=== PATIENT | female | born 2000 | race Caucasian/White ===

== ENCOUNTER 2018-10-18 15:00 | Emergency (ER) | payer OTHER ==
[2018-10-18 15:08] VITALS: BP 109/61; PULSE 68; TEMP 98; BMI 22.4
[2018-10-18 15:53] LABS: HCG,QUALITATIVE URINE Negative
[2018-10-18 16:00] LABS: EPI CELLS 4.4 /HPF (0-5); PH,URINE 6.5 (5.0-8.0); URINE APPEARANCE CLOUDY; URINE BACTERIA 223.056 /hpf (NEGATIVE); URINE BILIRUBIN NEGATIVE (NEGATIVE); URINE COLOR YELLOW; URINE GLUCOSE (UA) NEGATIVE (NEGATIVE); URINE KETONE TRACE (NEGATIVE); URINE LEUK ESTERASE 1+ (NEGATIVE); URINE NITRITE NEGATIVE (NEGATIVE); URINE PROTEIN NEGATIVE (NEGATIVE); URINE RBC 6 /hpf (0-4); URINE WBC 35 /hpf (0-5)
[2018-10-18] MEDS ORDERED: AZITHROMYCIN 250 MG TABLET PO ONE (16:34)
[2018-10-18] MEDS ORDERED: AZITHROMYCIN 250 MG TABLET ONE (16:39)
[2018-10-18] MEDS ORDERED: LIDOCAINE HCL 1%, 10 MG/ML (20ML VIAL) ONE (16:41)
[2018-10-18 16:43] LABS: HYALINE CASTS NONE SEEN /hpf (0-8)
--- NOTE | 2018-10-18 16:43 | PDOC ---
History of Present Illness - General Chief Complaint: Urinary Problem Stated Complaint: LOWER BACK PAIN Time Seen by Provider: 10/18/18 16:08 - History of Present Illness Initial Comments: 10/18/18 16:34 17-year-old female presents for evaluation and concern of pelvic pressure after unprotected sex about a week ago. She would like to be treated for GC and chlamydia she is diffuse HIV testing Past History - Past Medical History Allergies/Adverse Reactions: Allergies Allergy/AdvReac Type Severity Reaction Status Date / Time No Known Allergies Allergy Verified 10/18/18 15:03 Home Medications: Ambulatory Orders Levofloxacin [Levaquin] 750 mg PO DAILY #11 tablet 10/02/17 Nitrofurantoin Monohyd/M-Cryst [Macrobid -] 100 mg PO BID #14 capsule 10/18/18 CVA: No COPD: No DVT: No Dementia: No - Immunization History Immunization Up to Date: No - Suicide/Smoking/Psychosocial Hx Smoking History: Never smoked Have you smoked in the past 12 months: No Hx Alcohol Use: No Drug/Substance Use Hx: No Substance Use Type: None Review of Systems - Review of Systems : Yes: See HPI *Physical Exam - Vital Signs Last Vital Signs Temp Pulse Resp BP Pulse Ox 98.0 F 68 18 109/61 100 10/18/18 15:03 10/18/18 15:03 10/18/18 15:03 10/18/18 15:03 10/18/18 15:03 - Physical Exam Comments: 10/18/18 16:35 HEAD: NC/AT EYES: Conjuntiva clear Pelvic exam deferred to [employer] patient request MS: Full ROM in all joints without edema NEUROLOGIC: No gross sensory or motor deficits, NVID SKIN: Normal color and temperature no lesions or rashes ED Treatment Course - ADDITIONAL ORDERS Additional order review: Laboratory Results 10/18/18 15:30 Urine HCG, Qual Negative Medical Decision Making - Medical Decision Making 10/18/18 16:35 We'll treat for GC and chlamydia and have patient follow-up clinic. UA pending if UTI we'll treat for that as well. 10/18/18 16:36 HIV test refused *DC/Admit/Observation/Transfer Diagnosis at time of Disposition: UTI (urinary tract infection), Possible exposure to STD - Discharge Dispostion Disposition: HOME Condition at time of disposition: Stable Decision to Admit order: No - Prescriptions Prescriptions: Nitrofurantoin Monohyd/M-Cryst [Macrobid -] 100 mg PO BID #14 capsule - Referrals Referrals: [facility] [Primary Care Provider] - - Patient Instructions Printed Discharge Instructions: How to Detect and Treat STDs, Facts About Sexually Transmitted Infections, Chlamydia: The Silent STD, DI for Urinary Tract Infection (UTI), Urinary Tract Infection Additional Instructions: Return to the emergency room for worsening symptoms. You were treated for gonorrhea and chlamydia today. Your urine does show UTI. We will treat you for urinary tract infection please take the antibiotics as directed and finish the entire course follow-up with your primary care infant babysitter physician one to 2 days for further evaluation and treatment options. - Post Discharge Activity
== END 2018-10-18 16:56 | disposition home or self-care (01) ==
LOC: JERFT 15:00
DX: N39.0 Urinary tract infection, site not specified (principal); Z20.2 Contact with and (suspected) exposure to infections with a predominantly sexual mode of transmission
CPT/HCPCS: 36415; 81003; 84703; 87086; 87491; 87591; 96372; 99281-25

== ENCOUNTER 2019-04-19 10:11 | Emergency (ER) | payer OTHER ==
[2019-04-19 10:16] VITALS: BMI 20.3
[2019-04-19 10:44] VITALS: BP 112/51; PULSE 65; TEMP 98.6
--- NOTE | 2019-04-19 10:55 | PDOC ---
History of Present Illness - General Chief Complaint: Chest Pain Stated Complaint: MID BACK PAIN/ CHEST PAIN Time Seen by Provider: 04/19/19 10:51 History Source: Patient - History of Present Illness Presenting Symptoms: Other Past History - Past Medical History Allergies/Adverse Reactions: Allergies Allergy/AdvReac Type Severity Reaction Status Date / Time No Known Allergies Allergy Verified 04/19/19 10:16 Home Medications: Ambulatory Orders Levofloxacin [Levaquin] 750 mg PO DAILY #11 tablet 10/02/17 Nitrofurantoin Monohyd/M-Cryst [Macrobid -] 100 mg PO BID #14 capsule 10/18/18 Ibuprofen [Motrin -] 600 mg PO QID #28 tablet 04/19/19 Sulfamethoxazole/Trimethoprim [Bactrim Ds -] 1 tab PO BID #13 tablet 04/19/19 Cardiac Disorders: Yes (MUR MUR) CVA: No COPD: No DVT: No Dementia: No - Immunization History Immunization Up to Date: No - Psycho Social/Smoking Cessation Hx Smoking History: Never smoked Have you smoked in the past 12 months: No Hx Alcohol Use: No Drug/Substance Use Hx: No Substance Use Type: None Review of Systems - Review of Systems Constitutional: No: Chills, Fever Respiratory: No: Cough, Shortness of Breath Cardiac (ROS): Yes: Chest Pain. No: Lightheadedness, Palpitations, Syncope ABD/GI: No: Nausea, Vomiting, Abdominal cramping : Yes: Flank Pain. No: Burning, Dysuria, Discharge, Frequency, Hematuria *Physical Exam - Vital Signs Last Vital Signs Temp Pulse Resp BP Pulse Ox 98.6 F 65 15 112/51 L 100 04/19/19 10:43 04/19/19 10:43 04/19/19 10:43 04/19/19 10:43 04/19/19 10:43 - Physical Exam General Appearance: Yes: Appropriately Dressed, Mild Distress HEENT: positive: Normal Voice Neck: positive: Supple Respiratory/Chest: positive: Lungs Clear, Normal Breath Sounds. negative: Respiratory Distress Cardiovascular: positive: Regular Rate, S1, S2 Gastrointestinal/Abdominal: positive: Soft. negative: Tender Musculoskeletal: positive: Vertebral Tenderness (to R mid back, ? CVAT) Extremity: positive: Normal Inspection Integumentary: positive: Dry, Warm Neurologic: positive: Fully Oriented, Alert, Normal Mood/Affect Heart Score/ECG Review - ECG Intrepretation Comment:: 04/19/19 11:59 Twelve-lead EKG was performed and reviewed by me. There is normal sinus rhythm with a normal rate. The axis is normal. The intervals are normal. There are no ST or T wave abnormalities. Impression: Normal twelve-lead EKG ED Treatment Course - LABORATORY CBC & Chemistry Diagram: 04/19/19 11:11 04/19/19 11:11 - ADDITIONAL ORDERS Additional order review: Laboratory Results 04/19/19 04/19/19 04/19/19 11:11 11:11 11:11 Sodium 136 Potassium 3.9 Chloride 103 Carbon Dioxide 25 Anion Gap 8 BUN 7.9 Creatinine 0.8 Est GFR (CKD-EPI)AfAm 123.01 Est GFR (CKD-EPI)NonAf 106.13 Random Glucose 87 Calcium 9.6 Total Bilirubin 1.5 H AST 8 L ALT 15 Alkaline Phosphatase 64 Total Protein 7.6 Albumin 4.4 Urine Color Yellow Urine Appearance Clear Urine pH 6.0 Ur Specific Carpenter 1.015 Urine Protein Negative Urine Glucose (UA) Negative Urine Ketones Negative Urine Blood Negative Urine Nitrite Negative Urine Bilirubin Negative Urine Urobilinogen 0.2 Ur Leukocyte Esterase Trace Urine WBC (Auto) 4 Urine RBC (Auto) 1 Urine Casts (Auto) 1 U Epithel Cells (Auto) 2.4 Urine Bacteria (Auto) 32.2 Urine HCG, Qual Negative 04/19/19 11:11 RBC 4.57 MCV 87.6 MCHC 32.7 RDW 13.8 MPV 9.4 D Neutrophils % 92.2 H Lymphocytes % 4.2 L Monocytes % 3.3 L Eosinophils % 0.1 D Basophils % 0.2 - Medications Given in the ED: ED Medications Discontinued Medications Generic Name Dose Route Start Last Admin Trade Name Freq PRN Reason Stop Dose Admin Ketorolac Tromethamine 30 mg 04/19/19 10:58 04/19/19 11:19 Toradol Injection - IM 04/19/19 10:59 30 mg ONCE ONE Administration Trimethoprim/Sulfamethoxazole 1 each 04/19/19 12:31 04/19/19 12:35 Bactrim Ds - PO 04/19/19 12:32 1 each ONCE ONE Administration Medical Decision Making - Medical Decision Making Medical Decision Makin04/19/19 11:16 am 18 yo F, h/o heart murmur, sepsis 2/2 pyelo in 2018 , here w/ multiple complaints. Pt endorses h/o chronic chest pain x 1 yr, SS, non-radiating, lasts for 1-2 hrs and usually self resolves. For unclear reasons has not been evaluated by her PMD or cards. States she had chest pain last night and that pain lasted till this am so decided to come to ER. States pain better now. No sob, diaphoresis, n/v, palpitations, leg pain/swelling. Pt also c/o ? chronic back pain and states pain worsened 2 days ago, located to R mid back, constant, worse w/ certain movements and feels ? similar to prior pyelo per pt. ?urinary freq but no pain upon urinating, hematuria, n/v/f/c at this time. See exam Flank pain ?MSK vs ? recurrent pyelo given hx Stable and ayan uncomfortable w/? R CVAT -pain control -labs -ua/ucx Chronic CP Dx w/ heart murmur last pr per pt No sig pain now Stable w/ clear chest lungs EKG normal Anticipate dc w/ PMD/cards f/u 12:33pm UA w/ no nit or LE, +4 wbc and 32 zelalem. Wbc 13. On reassessment now, patient appears well, currently talking on her cell phone and reports that pain improved with toradol. No fever here and no nausea or vomiting. Though back pain might be muscular given worsening w/ movement, will start on bactrim ( prior sensitivity reviewed) given history and the fact that pt's UA was unremarkable in 2018, when pt presented w/ sepsis/pyelo, w/ ultimately +ucx. Pt feels well enough to be discharged w/ trial of oral abx and pain control. Strict return precautions given. Pt verbalized understanding Discharge - Discharge Information Problems reviewed: Yes Clinical Impression/Diagnosis: Flank pain Condition: Improved Disposition: HOME - Additional Discharge Information Prescriptions: Ibuprofen [Motrin -] 600 mg PO QID #28 tablet Sulfamethoxazole/Trimethoprim [Bactrim Ds -] 1 tab PO BID #13 tablet - Follow up/Referral - Patient Discharge Instructions Additional Instructions: The cause of your back pain might be muscular but given your history and slightly elevated white count of 13, we will treat prophylactically with antibiotics for possible UTI. Take antibiotics and Motrin as directed and if symptoms persist and/or worsen, return to the ER immediately Regarding your chronic chest pain, please follow up with your PMD - Post Discharge Activity Work/Back to School Note: Back to Work
[2019-04-19] MEDS ORDERED: KETOROLAC TROMETHAMINE 30 MG/1 ML VIAL IM ONE (10:58)
--- NOTE | 2019-04-19 11:04 | EKG ---
Test Reason : Blood Pressure : / mmHG Vent. Rate : 070 BPM Atrial Rate : 070 BPM P-R Int : 156 ms QRS Dur : 088 ms QT Int : 376 ms P-R-T Axes : 011 064 004 degrees QTc Int : 406 ms NORMAL SINUS RHYTHM NORMAL ECG WHEN COMPARED WITH ECG OF 28-SEP-2017 11:46, VENT. RATE HAS DECREASED BY 36 BPM Confirmed by BENJAMIN AGARWAL MD ([id number]) on 04/19/2019 11:03:46 AM Referred By: Confirmed By:BENJAMIN AGARWAL MD
[2019-04-19] MEDS ORDERED: KETOROLAC TROMETHAMINE 30 MG/1 ML VIAL ONE (11:09)
[2019-04-19 11:38] LABS: BASO % 0.2 % (0-2.0); EOS % 0.1 % (0-4.5); HEMOGLOBIN 13.1 GM/dL (10.7-15.3); LYMPH % 4.2 % (8-40); MCH 28.6 pg (25.7-33.7); MCHC 32.7 g/dl (32.0-36.0); MEAN CELL VOLUME 87.6 fl (80-96); MEAN PLT VOLUME 9.4 fl (7.5-11.1); MONO % 3.3 % (3.8-10.2); NEUT % 92.2 % (42.8-82.8); PLATELET COUNT 211 K/MM3 (134-434); RBC 4.57 M/mm3 (3.60-5.2); RDW 13.8 % (11.6-15.6); WHITE BLOOD COUNT 13.9 K/mm3 (4.0-10.0)
[2019-04-19 12:01] LABS: ALBUMIN 4.4 g/dl (3.4-5.0); BILIRUBIN,TOTAL 1.5 mg/dL (0.2-1); BLOOD UREA NITROGEN 7.9 mg/dL (7-18); CALCIUM 9.6 mg/dL (8.5-10.1); CREATININE 0.8 mg/dL (0.55-1.3); POTASSIUM 3.9 mmol/L (3.5-5.1); TOT PROT 7.6 g/dl (6.4-8.2)
[2019-04-19 12:09] LABS: EPI CELLS 2.4 /HPF (0-5/HPF); HYALINE CASTS 1 /lpf (0-8); URINE APPEARANCE CLEAR; URINE BACTERIA 32.2 /hpf (NEGATIVE); URINE BILIRUBIN NEGATIVE (NEGATIVE); URINE COLOR YELLOW; URINE GLUCOSE (UA) NEGATIVE (NEGATIVE); URINE KETONE NEGATIVE (NEGATIVE); URINE LEUK ESTERASE TRACE (NEGATIVE); URINE NITRITE NEGATIVE (NEGATIVE); URINE PROTEIN NEGATIVE (NEGATIVE); URINE RBC 1 /hpf (0-4); URINE UROBILINOGEN 0.2 mg/dL (0.2-1.0); URINE WBC 4 /hpf (0-5)
[2019-04-19] MEDS ORDERED: SULFAMETHOXAZOLE/TRIMETHOPRIM 800MG/160MG D.S. TABLET PO ONE (12:31)
[2019-04-19] MEDS ORDERED: SULFAMETHOXAZOLE/TRIMETHOPRIM 800MG/160MG D.S. TABLET ONE (12:34)
[2019-04-19 13:24] LABS: ANISOCYTOSIS 0; HELMET CELLS 0; HOWELL-JOLLY BODIES 0; MACROCYTOSIS 0; OVALOCYTE 0; PLATELET ESTIMATE NORMAL; ROULEAU 0; SICKELED CELLS 0; TARGET CELLS 0; TEAR DROP CELLS 0; TOXIC GRANULATION 0
== END 2019-04-19 12:41 | disposition home or self-care (01) ==
LOC: JER 10:11
PROC: 3E0233Z Introduction of Anti-inflammatory into Muscle, Percutaneous Approach (ICD-10-PCS; principal; 2019-04-19)
DX: R10.9 Unspecified abdominal pain (principal); R01.1 Cardiac murmur, unspecified
CPT/HCPCS: 36415; 80053; 81003; 84703; 85025; 87086; 93005; 93010; 99283-25

== ENCOUNTER 2019-09-11 21:53 | Emergency (ER) | payer OTHER ==
[2019-09-11 22:01] VITALS: BP 119/95; PULSE 68; TEMP 98; BMI 23.3
--- NOTE | 2019-09-11 22:24 | PDOC ---
*Physical Exam - Vital Signs Last Vital Signs Temp Pulse Resp BP Pulse Ox 98.0 F 68 18 119/95 100 09/11/19 21:59 09/11/19 21:59 09/11/19 21:59 09/11/19 21:59 09/11/19 21:59 ED Treatment Course - LABORATORY CBC & Chemistry Diagram: 09/11/19 23:30 09/11/19 23:30 Medical Decision Making - Medical Decision Making 09/11/19 22:24 Patient seen by the advanced practice provider under my supervision. Ancillary testing reviewed as necessary. I agree with plan as outlined by the advanced practice provider. Discharge - Discharge Information Problems reviewed: Yes Clinical Impression/Diagnosis: Eloped from emergency department Disposition: ELOPED - Follow up/Referral Referrals: Maxx Rea [Primary Care Provider] - - Patient Discharge Instructions - Post Discharge Activity
[2019-09-11] MEDS ORDERED: ACETAMINOPHEN 1000 MG/100 ML VIAL (NON FORMULARY) IVPB ONE (22:55)
[2019-09-11 23:37] LABS: BASO % 0.9 % (0-2.0); EOS % 2.3 % (0-4.5); HEMATOCRIT 36.6 % (32.4-45.2); HEMOGLOBIN 12.5 GM/dL (10.7-15.3); LYMPH % 28.2 % (8-40); MCH 29.4 pg (25.7-33.7); MCHC 34.1 g/dl (32.0-36.0); MEAN PLT VOLUME 9.8 fl (7.5-11.1); MONO % 6.3 % (3.8-10.2); NEUT % 62.3 % (42.8-82.8); PLATELET COUNT 258 K/MM3 (134-434); RBC 4.25 M/mm3 (3.60-5.2); RDW 14.3 % (11.6-15.6); WHITE BLOOD COUNT 4.2 K/mm3 (4.0-10.0)
[2019-09-11] MEDS ORDERED: ACETAMINOPHEN INJECTION 100 ML IVPB ONE (23:47)
[2019-09-12 00:20] LABS: ALBUMIN 4.4 g/dl (3.4-5.0); BILIRUBIN,TOTAL 0.8 mg/dL (0.2-1); CALCIUM 9.4 mg/dL (8.5-10.1); CREATININE 0.9 mg/dL (0.55-1.3); TOT PROT 8.1 g/dl (6.4-8.2)
[2019-09-12 00:22] LABS: EPI CELLS 4.1 /HPF (0-5/HPF); HYALINE CASTS 25 /lpf (0-8); URINE APPEARANCE CLEAR; URINE BACTERIA 187.6 /hpf (NEGATIVE); URINE BILIRUBIN NEGATIVE (NEGATIVE); URINE COLOR YELLOW; URINE GLUCOSE (UA) NEGATIVE (NEGATIVE); URINE KETONE TRACE (NEGATIVE); URINE LEUK ESTERASE 1+ (NEGATIVE); URINE NITRITE NEGATIVE (NEGATIVE); URINE PROTEIN NEGATIVE (NEGATIVE); URINE RBC 1 /hpf (0-4); URINE WBC 15 /hpf (0-5)
--- NOTE | 2019-09-12 00:24 | PDOC ---
History of Present Illness - General Chief Complaint: Pain Stated Complaint: ABD PAIN/VOMITING Time Seen by Provider: 09/11/19 22:21 History Source: Patient Exam Limitations: No Limitations - History of Present Illness Travel History: No Initial Comments: 09/12/19 00:18 HISTORY OF PRESENT ILLNESS: 18-year-old woman who denies medical history presents emergency department for evaluation of sudden onset lower abdominal pain starting approximately 1 hour prior to arrival. She denies nausea, vomiting, diarrhea, rectal bleeding, vaginal bleeding, vaginal discharge, dysuria, hematuria. Patient reports she has been having unprotected sex with one male partner. The sex has been vaginal. She denies oral and anal intercourse. Patient's last menstrual period was approximately 30 days ago. No recent travel or sick contacts. PAST MEDICAL HISTORY: Denies past medical history SURGICAL HISTORY: Denies ALLERGIES: No known drug allergies REVIEW OF SYSTEMS General/Constitutional: Denies fever or chills. Denies weakness, weight change. HEENT: Denies change in vision. Denies ear pain or discharge. Denies sore throat. Cardiovascular: Denies chest pain or shortness of breath. Respiratory: Denies cough, wheezing, or hemoptysis. Gastrointestinal: See HPI Genitourinary: Denies dysuria, frequency, or change in urination. Musculoskeletal: Denies joint or muscle swelling or pain. Denies neck or back pain. Skin and breasts: Denies rash or easy bruising. Neurologic: Denies headache, vertigo, loss of consciousness, or loss of sensation. Psychiatric: Denies depression or anxiety. Endocrine: Denies increased thirst. Denies abnormal weight change. Hematologic/Lymphatic: Denies anemia, easy bleeding, or history of blood clots. Allergic/Immunologic: Denies hives or skin allergy. Denies latex allergy. PHYSICAL EXAM General Appearance: Well-appearing, appropriately dressed. No apparent distress , no intoxication. Respiratory/Chest: Lungs CTAB. No shortness of breath, chest tenderness, respiratory distress, accessory muscle use. No crackles, rales, rhonchi, stridor , wheezing, dullness Cardiovascular: RRR. S1, S2. No JVD, murmur, bradycardia, tachycardia. Vascular Pulses: Dorsalis-Pedis (R): 2+, Dorsalis-Pedis (L): 2+ Gastrointestinal/Abdominal: Normal bowel sounds. Abdomen soft, non-distended. Lower abdomen tender without rebound tenderness. Negative Rovsing, obturator and psoas signs. No organomegaly, pulsatile mass, guarding, hernia, hepatomegaly, splenomegaly. Integumentary: Appropriate color, dry, warm. No cyanosis, erythema, jaundice or rash Past History - Past Medical History Allergies/Adverse Reactions: Allergies Allergy/AdvReac Type Severity Reaction Status Date / Time No Known Allergies Allergy Verified 09/11/19 21:58 Home Medications: Ambulatory Orders NK [No Known Home Medication] 09/12/19 Cardiac Disorders: Yes (MUR MUR) CVA: No COPD: No DVT: No Dementia: No - Immunization History Immunization Up to Date: No - Psycho Social/Smoking Cessation Hx Smoking History: Never smoked Have you smoked in the past 12 months: No Hx Alcohol Use: No Drug/Substance Use Hx: Yes (marijuana) Substance Use Type: None *Physical Exam - Vital Signs Last Vital Signs Temp Pulse Resp BP Pulse Ox 98.0 F 68 18 119/95 100 09/11/19 21:59 09/11/19 21:59 09/11/19 21:59 09/11/19 21:59 09/11/19 21:59 ED Treatment Course - LABORATORY CBC & Chemistry Diagram: 09/11/19 23:30 09/11/19 23:30 - ADDITIONAL ORDERS Additional order review: 09/11/19 23:30 RBC 4.25 MCV 86.0 MCHC 34.1 RDW 14.3 MPV 9.8 Neutrophils % 62.3 D Lymphocytes % 28.2 D Monocytes % 6.3 D Eosinophils % 2.3 D Basophils % 0.9 D - RADIOLOGY Radiology Studies Ordered: Category Date Time Status TRANSVAGINAL ULTRASOUND US [US] Stat Ultrasound 09/11/19 23:46 Ordered - Medications Given in the ED: ED Medications Discontinued Medications Generic Name Dose Route Start Last Admin Trade Name Freq PRN Reason Stop Dose Admin Acetaminophen 1,000 mg 09/11/19 22:55 09/11/19 23:53 Ofirmev Injection - IVPB 09/11/19 22:56 1,000 mg ONCE ONE Administration Medical Decision Making - Medical Decision Making 09/12/19 00:23 A/P: 18-year-old woman with sudden onset lower abdominal pain starting approximately 1 hour prior to arrival Differential diagnosis includes but is not limited to-PID, STI, kidney stone, UTI, diverticulitis Urinalysis, urine , urine culture, urine gonorrhea and chlamydia CBC, CMP Transvaginal ultrasound Tylenol 1 g orally Reassess Discharge - Discharge Information Problems reviewed: Yes Clinical Impression/Diagnosis: Eloped from emergency department Disposition: ELOPED - Follow up/Referral Referrals: Maxx Rea [Primary Care Provider] - - Patient Discharge Instructions - Post Discharge Activity
[2019-09-12 00:53] LABS: POTASSIUM 4.9 mmol/L (3.5-5.1)
== END 2019-09-12 02:00 | disposition left against medical advice (07) ==
LOC: JER 21:53
PROC: 3E033NZ Introduction of Analgesics, Hypnotics, Sedatives into Peripheral Vein, Percutaneous Approach (ICD-10-PCS; principal; 2019-09-11)
DX: R10.30 Lower abdominal pain, unspecified (principal)
CPT/HCPCS: 36415; 80053; 81003; 84703; 85025; 87086; 87186; 87491; 87591; 96374; 99284-25; J0131

== ENCOUNTER 2020-10-06 12:46 | Emergency (ER) | payer OTHER ==
[2020-10-06 12:56] VITALS: BP 103/70; PULSE 67; TEMP 98.3; BMI 21.7
[2020-10-06] MEDS ORDERED: IBUPROFEN 600 MG TABLET (FP) PO ONE ×2 (13:34→13:35)
== END 2020-10-06 14:03 | disposition home or self-care (01) ==
LOC: JERFT 12:46 → JER 12:46 → JERFT 14:03
DX: S93.601A Unspecified sprain of right foot, initial encounter (principal)
CPT/HCPCS: 73610-TC-RT-FY; 73630-TC-RT-FY; 99284-25

== ENCOUNTER 2021-04-23 14:21 | Emergency (ER) | payer OTHER ==
[2021-04-23 14:34] VITALS: BP 104/58; PULSE 72; TEMP 98.1; BMI 22.2
== END 2021-04-23 16:40 | disposition home or self-care (01) ==
LOC: JER 14:21
DX: R07.89 Other chest pain (principal)
CPT/HCPCS: 71046-TC-FY; 93005; 93010; 99284-25

== ENCOUNTER 2022-12-06 09:33 | Emergency (ER) | payer OTHER ==
[2022-12-06 09:41] VITALS: BP 104/68; PULSE 61; RESP 18; TEMP 97.8; BMI 24.4
[2022-12-06 11:14] LABS: BASO % 0.8 % (0-2.0); EOS % 4.3 % (0-4.5); HEMATOCRIT 40.7 % (32.4-45.2); HEMOGLOBIN 13.8 GM/dL (10.7-15.3); LYMPH % 23.1 % (8-40); MCH 29.5 pg (25.7-33.7); MEAN PLT VOLUME 8.4 fl (7.5-11.1); MONO % 7.7 % (3.8-10.2); NEUT % 64.1 % (42.8-82.8); PLATELET COUNT 256 10^3/uL (134-434); RBC 4.68 M/mm3 (3.60-5.2); RDW 14.1 % (11.6-15.6); WHITE BLOOD COUNT 4.7 K/mm3 (4.0-10.0)
[2022-12-06 11:18] LABS: EPI CELLS >36 /uL (0-25.1); HYALINE CASTS 6 /uL (0-3.1); URINE APPEARANCE CLOUDY; URINE BACTERIA 30 /uL (0-1359); URINE BILIRUBIN NEGATIVE (NEGATIVE); URINE COLOR ORANGE; URINE GLUCOSE (UA) NEGATIVE (NEGATIVE); URINE KETONE NEGATIVE (NEGATIVE); URINE LEUK ESTERASE 2+ (NEGATIVE); URINE NITRITE NEGATIVE (NEGATIVE); URINE PROTEIN 2+ (NEGATIVE); URINE RBC 13917 /uL (0-23.9); URINE WBC 280 /uL (0-25.8)
[2022-12-06 11:27] LABS: POTASSIUM 3.6 mmol/L (3.5-5.1)
[2022-12-06 11:29] LABS: ALBUMIN 4.3 g/dl (3.4-5.0); CALCIUM 9.5 mg/dL (8.5-10.1)
[2022-12-06 11:30] LABS: BLOOD UREA NITROGEN 7.8 mg/dL (7-18)
[2022-12-06 11:32] LABS: BILIRUBIN,DIRECT 0.3 mg/dL (0.0-0.2); CREATININE 0.8 mg/dL (0.55-1.3)
== END 2022-12-06 12:19 | disposition home or self-care (01) ==
LOC: JER 09:33
DX: O46.91 Antepartum hemorrhage, unspecified, first trimester (principal); Z3A.01 Less than 8 weeks gestation of pregnancy
CPT/HCPCS: 36415; 76817-TC; 80048; 80076; 81003; 84702; 85025; 86850; 86900; 86901; 87086; 87491; 87591; 99284-25

== ENCOUNTER 2022-12-08 10:20 | Emergency (ER) | payer OTHER ==
[2022-12-08 10:26] VITALS: BP 109/69; PULSE 98; RESP 20; TEMP 97.9; BMI 24.4
[2022-12-08 11:35] LABS: BASO % 0.9 % (0-2.0); EOS % 3.8 % (0-4.5); HEMATOCRIT 35.9 % (32.4-45.2); HEMOGLOBIN 12.4 GM/dL (10.7-15.3); LYMPH % 45.1 % (8-40); MCH 30.1 pg (25.7-33.7); MCHC 34.7 g/dl (32.0-36.0); MEAN CELL VOLUME 86.7 fl (80-96); MONO % 8.7 % (3.8-10.2); NEUT % 41.5 % (42.8-82.8); PLATELET COUNT 204 10^3/uL (134-434); RBC 4.14 M/mm3 (3.60-5.2)
[2022-12-08] MEDS ORDERED: ACETAMINOPHEN 500 MG TABLET (FP) PO ONE (12:30)
[2022-12-08] MEDS ORDERED: ACETAMINOPHEN 500 MG TABLET (FP) ONE (12:44)
== END 2022-12-08 13:00 | disposition home or self-care (01) ==
LOC: JER 10:20
DX: N93.9 Abnormal uterine and vaginal bleeding, unspecified (principal); R10.30 Lower abdominal pain, unspecified
CPT/HCPCS: 36415; 84702; 85025; 99283-25

== ENCOUNTER 2022-12-31 20:02 | Emergency (ER) | payer OTHER ==
[2022-12-31 20:07] VITALS: BP 104/62; PULSE 94; RESP 18; TEMP 97.9; BMI 24.5
[2022-12-31] MEDS ORDERED: ACETAMINOPHEN 500 MG TABLET (FP) PO ONE (20:32)
[2022-12-31] MEDS ORDERED: ACETAMINOPHEN 500 MG TABLET (FP) ONE (21:00)
== END 2022-12-31 21:36 | disposition home or self-care (01) ==
LOC: JER 20:02
DX: M25.572 Pain in left ankle and joints of left foot (principal); M79.672 Pain in left foot; W18.39XA Other fall on same level, initial encounter; W10.8XXA Fall (on) (from) other stairs and steps, initial encounter; Y92.26 Movie house or cinema as the place of occurrence of the external cause
CPT/HCPCS: 73610-TC-LT-FY; 73630-TC-LT; 99283-25

== ENCOUNTER 2023-05-02 13:36 | Emergency (ER) | payer OTHER ==
[2023-05-02 13:41] VITALS: BP 108/67; PULSE 61; RESP 18; TEMP 98; BMI 24.5
[2023-05-02] MEDS ORDERED: IBUPROFEN 400 MG TABLET (FP) PO ONE ×2 (14:58→15:03)
== END 2023-05-02 16:24 | disposition home or self-care (01) ==
LOC: JER 13:36
DX: R07.89 Other chest pain (principal); R05.9 Cough, unspecified; R68.83 Chills (without fever); J02.9 Acute pharyngitis, unspecified; R09.81 Nasal congestion; J06.9 Acute upper respiratory infection, unspecified; J00 Acute nasopharyngitis [common cold]; R09.82 Postnasal drip; J34.89 Other specified disorders of nose and nasal sinuses; Z20.822 Contact with and (suspected) exposure to COVID-19
CPT/HCPCS: 0241U-QW; 71046-TC-FY; 93005; 93010; 99285-25

== ENCOUNTER 2024-07-20 12:15 | Emergency (ER) | payer OTHER ==
[2024-07-20 13:31] VITALS: BP 112/71; PULSE 72; RESP 18; TEMP 97.6; BMI 27.1
[2024-07-20] MEDS ORDERED: ONDANSETRON 4 MG/2 ML VIAL ONE (14:38)
[2024-07-20] MEDS ORDERED: IBUPROFEN 400 MG TABLET (FP) PO ONE (14:38)
[2024-07-20] MEDS: IBUPROFEN 400 MG TABLET (FP) PO ONE (15:26)
[2024-07-20] MEDS: SODIUM CHLORIDE 0.9% 500 ML INFUS.BAG IV ONE (15:27)
[2024-07-20] MEDS: ONDANSETRON 4 MG/2 ML VIAL IVPUSH ONE (15:27)
[2024-07-20 15:31] LABS: BASO % 0.3 % (0-2.0); EOS % 2.9 % (0-4.5); HEMATOCRIT 44.3 % (32.4-45.2); HEMOGLOBIN 14.5 GM/dL (10.7-15.3); LYMPH % 6.6 % (8-40); MCH 29.6 pg (25.7-33.7); MCHC 32.7 g/dl (32.0-36.0); MEAN CELL VOLUME 90.5 fl (80-96); MEAN PLT VOLUME 8.9 fl (7.5-11.1); MONO % 3.3 % (3.8-10.2); NEUT % 86.9 % (42.8-82.8); PLATELET COUNT 233 10^3/uL (134-434); RDW 13.9 % (11.6-15.6); WHITE BLOOD COUNT 5.7 K/mm3 (4.0-10.0)
[2024-07-20 15:33] LABS: EPI CELLS 36 /uL (0-25.1); HYALINE CASTS 1 /uL (0-3.1); PH,URINE 5.5 (5.0-8.0); URINE APPEARANCE CLOUDY; URINE BACTERIA 122 /uL (0-1359); URINE BILIRUBIN NEGATIVE (NEGATIVE); URINE COLOR RED; URINE GLUCOSE (UA) NEGATIVE (NEGATIVE); URINE KETONE NEGATIVE (NEGATIVE); URINE LEUK ESTERASE 1+ (NEGATIVE); URINE NITRITE NEGATIVE (NEGATIVE); URINE PROTEIN 2+ (NEGATIVE); URINE RBC 6557 /uL (0-23.9); URINE UROBILINOGEN 0.2 mg/dL (0.2-1.0); URINE WBC 257 /uL (0-25.8)
[2024-07-20 15:53] LABS: POTASSIUM 4.2 mmol/L (3.5-5.1)
[2024-07-20 15:55] LABS: ALBUMIN 4.6 g/dl (3.4-5.0); BLOOD UREA NITROGEN 11.4 mg/dL (7-18); CALCIUM 9.4 mg/dL (8.5-10.1); MAGNESIUM 1.9 mg/dL (1.8-2.4)
[2024-07-20 15:58] LABS: CREATININE 0.9 mg/dL (0.55-1.3)
[2024-07-20 16:00] LABS: BILIRUBIN,TOTAL 1.3 mg/dL (0.2-1); TOT PROT 8.1 g/dl (6.4-8.2)
[2024-07-20] MEDS ORDERED: CEFTRIAXONE 1 G/50 ML PREMIX 50 ML IVPB ONE (16:34)
[2024-07-20 16:48] LABS: HIV INTERPRETATION NEGATIVE (NEGATIVE)
== END 2024-07-20 19:08 | disposition home or self-care (01) ==
LOC: JER 12:15
PROC: 3E03329 Introduction of Other Anti-infective into Peripheral Vein, Percutaneous Approach (ICD-10-PCS; principal; 2024-07-20)
PROC: 3E033GC Introduction of Other Therapeutic Substance into Peripheral Vein, Percutaneous Approach (ICD-10-PCS; 2024-07-20)
DX: N39.0 Urinary tract infection, site not specified (principal); R11.2 Nausea with vomiting, unspecified; R19.7 Diarrhea, unspecified; R50.9 Fever, unspecified; Z20.822 Contact with and (suspected) exposure to COVID-19
CPT/HCPCS: 0241U-QW; 36415; 80053; 81003; 83735; 84703; 85025; 86803; 87086; 87389; 93005; 93010; 99284-25